=== PATIENT | male | born 1935 | race Caucasian/White ===

== ENCOUNTER 2016-11-25 17:48 | Emergency (ER) | payer OTHER ==
[~2016-11-25] VITALS: Ht 160 cm; Wt 54.9 kg
[~2016-11-25 17:48] MED LIST: AMLODIPINE5 M1 PO; ASPIR 8181 MG PO; CARVEDILOL12.5 M1 PO; CLOPIDOGREL75 M1 PO; FER300 PO; LISINOPRIL20 MG PO; PANTOPRAZOLE SO40 M1 PO; PRI20 PO; SIMVASTATIN20 M1 PO; VITC PO
[2016-11-25 21:32] VITALS: BP 127/72
== END 2016-11-25 22:51 | disposition home or self-care (01) ==
LOC: ED 17:48
DX: S62.621B Displaced fracture of middle phalanx of left index finger, initial encounter for open fracture (principal); X58.XXXA Exposure to other specified factors, initial encounter; Y93.89 Activity, other specified; Y99.8 Other external cause status; Y92.89 Other specified places as the place of occurrence of the external cause
CPT/HCPCS: J2001; Q0092

== ENCOUNTER 2017-11-29 09:50 | Inpatient (IN) | payer OTHER ==
[~2017-11-29] VITALS: Ht 160 cm; Wt 56.2 kg
[2017-11-29 09:55] VITALS: Ht 160 cm; Wt 56.2 kg
[2017-11-29 10:55] LABS: BASOPHIL % 0.7 % (0-2); PLATELET COUNT 177 x10^3mcL (130-400)
[2017-11-29 10:59] LABS: RED CELL DISTRIBUTION WIDTH 15.1 % (11.5-14.5)
[2017-11-29 11:13] LABS: CALCIUM 9.1 mg/dL (8.5-10.1); CARBON DIOXIDE 28.7 mmol/L (21-32); CHLORIDE SERUM 97 mmol/L (98-107); CREATININE SERUM 0.9 mg/dL (0.7-1.3); GLUCOSE SERUM 104 mg/dL (74-106); POTASSIUM SERUM 5.4 mmol/L (3.5-5.1); SODIUM SERUM 132 mmol/L (136-145)
[2017-11-29 11:18] LABS: ALBUMIN 3.6 g/dL (3.4-5.0); ALKALINE PHOSPHATASE 79 U/L (46-116); ALT/SGPT 31 U/L (16-63); AST/SGOT 18 U/L (15-37); BILIRUBIN TOTAL 0.49 mg/dL (0.20-1.00); TOTAL PROTEIN, SERUM 7.1 g/dL (6.4-8.2)
[2017-11-29] MEDS ORDERED: PLA75 PO (12:14)
[2017-11-29] MEDS ORDERED: ASPIR 8181 MG PO (12:14)
[2017-11-29] MEDS ORDERED: PROTONIX20 MG PO (12:14)
[2017-11-29 13:10] LABS: CHOLESTEROL/HDL RATIO 2.1; PHOSPHOROUS 3.4 mg/dL (2.5-4.9)
[2017-11-29 13:23] VITALS: BP 166/75
[2017-11-29 13:52] LABS: FREE T4 0.98 ng/dL (0.76-1.46); FREE THYROXINE INDEX 2.5 ug/dL (1.4-4.5); T4(THYROXINE) 7.2 ug/dL (4.7-13.3)
[2017-11-29 17:17] LABS: microscopic required? NO
[2017-11-29 17:25] VITALS: BP 175/85
[2017-11-29 17:25] LABS: urine erythrocyte NEGATIVE (NEGATIVE)
[2017-11-29 17:34] LABS: AMPHETAMINE QUAL UR NONE DETECTED (NEG <=1000)
[2017-11-29 22:00] VITALS: BP 157/78
[2017-11-30 05:38] VITALS: BP 140/70
[2017-11-30 08:14] LABS: BASOPHIL % 0.5 % (0-2); PLATELET COUNT 203 x10^3mcL (130-400)
[2017-11-30 08:15] LABS: RED CELL DISTRIBUTION WIDTH 15.2 % (11.5-14.5)
[2017-11-30 08:20] LABS: CALCIUM 8.6 mg/dL (8.5-10.1); CARBON DIOXIDE 24.8 mmol/L (21-32); CHLORIDE SERUM 99 mmol/L (98-107); CREATININE SERUM 0.9 mg/dL (0.7-1.3); GLUCOSE SERUM 108 mg/dL (74-106); PHOSPHOROUS 3.1 mg/dL (2.5-4.9); POTASSIUM SERUM 4.2 mmol/L (3.5-5.1); SODIUM SERUM 130 mmol/L (136-145)
[2017-11-30 08:45] VITALS: BP 144/81
[2017-11-30 13:47] VITALS: BP 130/67
[2017-11-30] MEDS ORDERED: COL100 PO (15:32)
[2017-11-30] MEDS ORDERED: METP PO (15:32)
[2017-11-30] MEDS ORDERED: NOR5 PO (15:32)
[2017-11-30 15:59] VITALS: BP 130/67
[2017-11-30 17:05] VITALS: BP 138/61
== END 2017-11-30 18:53 | disposition home or self-care (01) | DRG 393 ==
LOC: ED 09:50 → DU 12:00
PROVIDERS: Emergency Medicine; Family Medicine; Internal Medicine Gastroenterology
PROC: 0DBL8ZZ Excision of Transverse Colon, Via Natural or Artificial Opening Endoscopic (ICD-10-PCS; principal; 2017-11-30 08:00)
PROC: 0DB68ZX Excision of Stomach, Via Natural or Artificial Opening Endoscopic, Diagnostic (ICD-10-PCS; 2017-11-30 08:00)
DX: K64.8 Other hemorrhoids (principal); N17.0 Acute kidney failure with tubular necrosis; K57.30 Diverticulosis of large intestine without perforation or abscess without bleeding; D12.3 Benign neoplasm of transverse colon; I10 Essential (primary) hypertension; E87.6 Hypokalemia; R73.03 Prediabetes; I25.10 Atherosclerotic heart disease of native coronary artery without angina pectoris; Z68.22 Body mass index [BMI] 22.0-22.9, adult; Z87.11 Personal history of peptic ulcer disease; Z95.5 Presence of coronary angioplasty implant and graft; Z79.82 Long term (current) use of aspirin
CPT/HCPCS: 43235; 83880; 84439; C9113; J1200; J1610; J2250; J2310; J3010; J3490; J7030; Q0092

== ENCOUNTER 2018-11-17 00:18 | Inpatient (IN) | payer OTHER | END 2018-11-17 20:45 | disposition home or self-care (01) | LOC: ED 00:18 → DU 20:45 → ED 00:18 → DU 02:04 | DX: K92.2 Gastrointestinal hemorrhage, unspecified (principal); E87.1 Hypo-osmolality and hyponatremia ==